=== PATIENT | female | born 1975 ===

== ENCOUNTER 2017-11-30 11:22 | Emergency (ER) | payer MEDICAID ==
[2017-11-30 11:29] VITALS: TEMP 97.6
[2017-11-30 11:42] VITALS: BMI 30.5
[2017-11-30] MEDS ORDERED: Sodium Chloride 0.9% 1,000 ML IV ONE (13:06)
--- NOTE | 2017-11-30 13:18 | C.PDOC ---
History Of Present Illness 42 y/o female with history of cardiac arrhythmia and HTN presents to ED status post feeling dizzy and fainting while in the waiting room. Patient had a biopsy today on right breast and tolerated procedure but immediately had a mammogram done, she began feeling woozy and was taken to the waiting room began to feel dizzy and then does not remember what happen. As per parents at bedside patient did not fall, just slightly slouched over chair. Patient states this is the 1st time this has happened and states she currently feels dizzy worse when sitting up. Patient denies chest pain, sob, weakness, numbness, headache, nausea, vomiting or any other complaints at this time. Time Seen by Provider: 11/30/17 12:45 Chief Complaint (Nursing): Syncope History Per: Patient History/Exam Limitations: no limitations Onset/Duration Of Symptoms: Mins Current Symptoms Are (Timing): Still Present Activity At Onset Of Symptoms: Sitting Past Medical History Reviewed: Historical Data, Nursing Documentation, Vital Signs Vital Signs: Last Vital Signs Temp 97.6 F 11/30/17 11:28 Pulse 66 11/30/17 13:54 Resp 18 11/30/17 13:54 BP 130/76 11/30/17 13:54 Pulse Ox 97 11/30/17 13:54 - Medical History PMH: Cardia Arrhythmia, HTN Surgical History: No Surg Hx Family History: States: No Known Family Hx - Social History Hx Alcohol Use: No Hx Substance Use: No Review Of Systems Constitutional: Negative for: Fever, Chills Gastrointestinal: Negative for: Nausea, Vomiting Skin: Negative for: Rash Neurological: Positive for: Dizziness. Negative for: Weakness, Numbness, Headache Physical Exam - Physical Exam Appears: Non-toxic, No Acute Distress Skin: Warm, Dry, No Rash Head: Atraumatic, Normacephalic Eye(s): bilateral: Normal Inspection Oral Mucosa: Moist Neck: Supple Cardiovascular: Rhythm Regular Respiratory: Normal Breath Sounds, No Rales, No Rhonchi, No Wheezing Gastrointestinal/Abdominal: Soft, No Tenderness, No Guarding, No Rebound Neurological/Psych: Oriented x3, Normal Speech, Normal Cognition ED Course And Treatment - Laboratory Results Result Diagrams: 11/30/17 13:30 11/30/17 13:30 O2 Sat by Pulse Oximetry: 98 (RA) Pulse Ox Interpretation: Normal Medical Decision Making Medical Decision Making: Plan: Blood work, UA, ECG,ordered Disposition Counseled Patient/Family Regarding: Studies Performed, Diagnosis, Need For Followup - Disposition Disposition: HOME/ ROUTINE Disposition Time: 14:38 Condition: STABLE Instructions: Syncope (ED) Forms: Gen Discharge Inst Ivorian, [facility] (Ivorian), Work Excuse - POA Present On Arrival: None - Clinical Impression Clinical Impression: Vasovagal syncope - Scribe Statement The provider has reviewed the documentation as recorded by the Alan Jain All medical record entries made by the Edelibcheryl were at my direction and personally dictated by me. I have reviewed the chart and agree that the record accurately reflects my personal performance of the history, physical exam, medical decision making, and the department course for this patient. I have also personally directed, reviewed, and agree with the discharge instructions and disposition.
[2017-11-30 13:39] LABS: BASO % 0.3 % (0.0-2.0); EOS % 0.4 % (0.0-4.0); LYMPH # 1.7 K/uL (1.0-4.3); LYMPH % 15.9 % (20.0-40.0); MEAN CELL VOLUME 85.1 fL (81.0-99.0); MEAN CORPUSCULAR HEMOGLOBIN 28.7 pg (27.0-31.0); MEAN CORPUSCULAR HGB CONC 33.8 g/dL (33.0-37.0); MEAN PLATELET VOLUME 9.5 fL (7.2-11.7); MONO # 0.6 K/uL (0.0-0.8); MONO % 5.6 % (0.0-10.0); NEUT # 8.3 K/uL (1.8-7.0); NEUT % 77.8 % (50.0-75.0); RBC 3.81 Mil/uL (3.80-5.20); WHITE BLOOD COUNT 10.7 K/uL (4.8-10.8)
[2017-11-30 13:46] LABS: HCG,QUALITATIVE URINE NEGATIVE (NEGATIVE)
[2017-11-30 13:52] LABS: SQUAMOUS EPITHIAL 38 /hpf (0-5); URINE BACTERIA RARE (<OCC); URINE BILIRUBIN NEGATIVE (NEGATIVE); URINE BLOOD NEGATIVE (NEGATIVE); URINE CLARITY Hazy (Clear); URINE COLOR Yellow (YELLOW); URINE GLUCOSE (UA) NORMAL (Normal); URINE LEUKOCYTE ESTERASE 1+ Leu/uL (Negative); URINE NITRATE NEGATIVE (NEGATIVE); URINE PROTEIN NEGATIVE (NEGATIVE); URINE UROBILINOGEN NORMAL mg/dL (0.2-1.0)
[2017-11-30 13:57] VITALS: BP 130/76; PULSE 66; RESP 18
[2017-11-30 14:02] LABS: ALB/GLOB RATIO 1.3 (1.0-2.1); ALBUMIN 3.6 g/dL (3.5-5.0); ALT/SGPT 52 U/L (9-52); AST/SGOT 36 U/L (14-36); BLOOD UREA NITROGEN 6 mg/dL (7-17); CALCIUM 8.2 mg/dl (8.6-10.4); GFR AFRICAN-AMERICAN > 60; GFR NON-AFRICAN AMERICAN > 60
[2017-11-30 14:24] LABS: PHENCYCLIDINE, UR NEGATIVE (NEGATIVE)
[2017-11-30 14:30] LABS: BARBITURATES, UR NEGATIVE (NEGATIVE); BENZODIAZEPINES, UR NEGATIVE (NEGATIVE); OPIATES, UR NEGATIVE (NEGATIVE)
[2017-11-30 14:40] VITALS: O2SAT 98
--- NOTE | 2017-12-03 04:12 | CARD ---
APPROVED REPORT EKG Measurement Heart [id number] <Conclusion> Normal sinus rhythm Normal ECG
== END 2017-11-30 14:47 | disposition home or self-care (01) ==
LOC: C.ER 11:22
DX: R55 Syncope and collapse (principal)

== ENCOUNTER → 2017-12-24 | Day surgery (SDC) | payer MEDICAID ==
[2017-11-30 11:42] VITALS: BMI 30.5
[~2017-12-24] MED LIST: Bupivacaine HCl 0.25% PF (10 ml) Inj ONE; Lidocaine 1%/Epinephrine 1:100000 30 ml vial IJ ONE; Lidocaine/Epinephrine 1% 1:100000 10 ML IJ ONE; Oxycodone/Acetaminophen 5/325 mg Tab PO ONE; ceFAZolin IV 1 gm in Dextrose 0 GM/0 ML BAG IVPB ONE; ceFAZolin IV 2 gm in Dextrose 2 GM/50 ML BAG IVPB ONE
[2017-12-24 11:08] VITALS: O2SAT 98
[2017-12-24 14:04] VITALS: BP 98/53; PULSE 58; RESP 15; TEMP 97.8
--- NOTE | 2017-12-24 14:09 | PCM.SURG1 ---
Surgeon's Initial Post Op Note - Surgeon's Notes Surgeon: Jeremías Size Worker: Tatiana [id number] Type of Anesthesia: Local Pre-Operative Diagnosis: Sebaceous cyst of abdominal wall and back Operative Findings: see op note Post-Operative Diagnosis: Sebaceous cyst of abdominal wall and back Operation Performed: Excision of sebaceous cysts of abdominal wall and back Specimen/Specimens Removed: Sebaceous cyst of abdominal wall and back Estimated Blood Loss: EBL {In ML}: 5 Blood Products Given: N/A Drains Used: No Drains Post-Op Condition: Good Date of Surgery/Procedure: 12/24/17 Time of Surgery/Procedure: 12:45
--- NOTE | 2017-12-26 00:02 | OP ---
PROCEDURE DATE: 12/24/2017. PREOPERATIVE DIAGNOSES: 1. Sebaceous cyst of the right upper back, 3 x 2 cm size. 2. Sebaceous cyst of the abdominal wall, 1 x 1 cm size. POSTOPERATIVE DIAGNOSES: 1. Sebaceous cyst of the right upper back, 3 x 2 cm. 2. Sebaceous cyst of the abdominal wall, 1 x 1 cm size. PROCEDURES: 1. Excision of sebaceous cyst of the right upper back, 3 x 2 cm size. 2. Layered closure of the wound, 3 x 2 cm size. 3. Excision of sebaceous cyst of the abdominal wall, 1 x 1 cm size. SURGEON: Jose Miguel Veronica MD. DIGITAL MEDIA ASSOCIATE: None. TYPE OF ANESTHESIA: Local anesthesia. ESTIMATED BLOOD LOSS: EBL is around 10 mL for both procedures. COMPLICATIONS: None. DRAINS: None. PATHOLOGY: The sebaceous cyst of the right upper back and abdominal wall was sent for the pathology. COMPLICATIONS: None. INTRAOPERATIVE FINDINGS: The patient had approximately 3 x 2 cm sebaceous cyst of the right upper back and 1 x 1 cm sebaceous cyst of the abdominal wall. DESCRIPTION OF PROCEDURE: On intraoperative steps, this 42-year-old female was diagnosed with a sebaceous cyst of the right upper back and abdominal wall. The patient was consented for excision of the both cysts, and the patient was placed in the left lateral position. Right upper back as well as abdominal wall was prepped and draped in the usual sterile fashion and elliptical incision was made after injecting local anesthesia, surrounding the abdominal wall sebaceous cyst, on right flank. Upper and lower flap was created and the cyst was completely excised and wound was closed in 2 layers, subcu with a 2-0 Vicryl, skin with 4-0 Monocryl. Dry sterile dressing was applied and after the local anesthesia was injected surrounding the right upper back sebaceous cyst, elliptical 3 x 2 cm incision was made after incising the skin and subcutaneous tissue, upper and lower flap was created and the sebaceous cyst was completely excised from the subcutaneous tissue and now the wound was irrigated and the upper flap was sutured to the underlying fascia, lower flap was sutured to the underlying fascia. Another layer of the deep subcutaneous tissue sutured to the underlying fascia and superficial layer of the subcu with a 3-0 Vicryl, skin with a 4-0 Monocryl, and another layer of the skin with 5-0 nylon and dry sterile dressing was applied. The patient tolerated the procedure well. Count of the instrument and gauze was correct. There was no apparent complication. The patient was reversed from mild sedation and sent to the postanesthesia care unit in stable condition. Jose Miguel Veronica MD
== END | disposition home or self-care (01) ==
LOC: C.SDS 09:46
PROVIDERS: ATTEND Surgery Surgical Critical Care
DX: L72.3 Sebaceous cyst (principal); I10 Essential (primary) hypertension; E66.3 Overweight; Z68.30 Body mass index [BMI] 30.0-30.9, adult; I47.1 Supraventricular tachycardia; Z79.899 Other long term (current) drug therapy; D24.9 Benign neoplasm of unspecified breast
CPT/HCPCS: 11401; 11403; 12032; 88305; J0690